=== PATIENT | male | born 1945 | race Asian ===

== ENCOUNTER 2016-12-16 07:45 | Outpatient (CLI) | payer MEDICARE | END 2016-12-16 07:46 | disposition home or self-care (01) | LOC: RT 07:45 | PROVIDERS: ATTEND Physician Assistant | DX: R01.1 Cardiac murmur, unspecified (principal); I51.7 Cardiomegaly; I37.1 Nonrheumatic pulmonary valve insufficiency; I10 Essential (primary) hypertension; Z87.891 Personal history of nicotine dependence | CPT/HCPCS: 93005; 93306 ==

== ENCOUNTER → 2022-01-02 | Outpatient (CLI) | payer MEDICARE, OTHER | END | disposition short-term general hospital (02) | LOC: EMS 07:02 | DX: R29.810 Facial weakness (principal); R53.1 Weakness; R46.4 Slowness and poor responsiveness; R47.81 Slurred speech | CPT/HCPCS: A0425; A0429 ==